=== PATIENT | male | born 1975 | race Caucasian/White ===

== ENCOUNTER 2019-04-12 19:14 | Inpatient (IN) | payer SELFPAY ==
[~2019-04-12] VITALS: Ht 182.9 cm; Wt 102.1 kg
[2019-04-12] MEDS ORDERED: LEVOFLOXACIN 500MG/D5W 100ML 100 ML IV STA (19:36)
[2019-04-12] MEDS ORDERED: VANCOMYCIN 1GM/NS 250 ML 250 ML IV STA (19:36)
[2019-04-12] MEDS ORDERED: ACETAMINOPHEN 325 MG TAB PO ONE (19:45)
[2019-04-12 19:54] LABS: BASOPHILS % 0.2 % (0.0-1.0); EOSINOPHILS % 0.1 % (0.0-6.0); HEMATOCRIT 46.8 % (38.2-49.6); LYMPHOCYTES # (AUTO) 1.4 (1.0-3.2); MEAN CORPUSCULAR HEMOGLOBIN 30.2 pg (28-32); MEAN CORPUSCULAR HGB CONC 34.2 g/dL (31-35); MEAN CORPUSCULAR VOLUME 88.3 fL (81-99); MONOCYTES # (AUTO) 1.2 (0.2-0.8); MONOCYTES % 6.8 % (4.4-11.3); NEUTROPHILS # (AUTO) 14.5 (2.1-6.9); NEUTROPHILS % 84.4 % (38.7-80.0); PLATELET COUNT 241 x10e3/uL (140-360); RED CELL DISTRIBUTION WIDTH 12.5 % (11.7-14.4)
[2019-04-12] MEDS ORDERED: TRAMADOL HCL 50 MG TAB PO NR (20:00)
[2019-04-12 20:12] LABS: ALANINE AMINOTRANSFERASE 26 IU/L (0-55); ALBUMIN 3.5 g/dL (3.5-5.0); ALBUMIN/GLOBULIN RATIO 0.8 (0.8-2.0); ALKALINE PHOSPHATASE 99 IU/L (40-150); ANION GAP 14.9 mmol/L (8-16); BLOOD UREA NITROGEN 11 mg/dL (7-26); BUN/CREATININE RATIO 12 (6-25); CALCIUM 9.7 mg/dL (8.4-10.2); CARBON DIOXIDE 25 mmol/L (22-29); CHLORIDE 97 mmol/L (98-107); CREATININE, SERUM 0.93 mg/dL (0.72-1.25); EST GLOMERULAR FILTRATION RATE > 60 ML/MIN (60-); GLUCOSE 125 mg/dL (74-118); POTASSIUM 3.9 mmol/L (3.5-5.1); SODIUM 133 mmol/L (136-145)
[2019-04-12] MEDS ORDERED: ONDANSETRON HCL INJ 2MG/ML 2ML 2 MG/ML VIAL IV PRN (20:45)
[2019-04-12] MEDS ORDERED: MORPHINE SULFATE 2 MG/ML SYR 1ML IV PRN (20:45)
[2019-04-12] MEDS: VANCOMYCIN 1GM/NS 250 ML 250 ML IV SCH (21:04)
[2019-04-12] MEDS: LEVOFLOXACIN 500MG/D5W 100ML 100 ML IV SCH (21:05)
--- NOTE | 2019-04-12 21:07 | NUR ---
received patient from er, aaox3, amb., resp even and unlabored. stable condition. c/o pain to RLE 10/10- pain medication to be administered, see emar. bed locked and in lowest position, call light within reach. no needs voiced at this time. will continue to monitor patient. patient refused bed alarm, patient refused non-slip socks.
[2019-04-12 21:26] VITALS: BP 138/92
[2019-04-12 21:38] VITALS: BP 138/92
[2019-04-12 21:44] VITALS: BP 138/92
[2019-04-12] MEDS: MORPHINE SULFATE INJ 4 MG/ML INJ 1ML IV PRN (22:16)
[2019-04-12] MEDS: SODIUM CHLORIDE 0.9% 1000ML 1,000 ML IV SCH (22:16)
[2019-04-13] VITALS (8 sets, daily range): BP systolic 134–169; BP diastolic 73–96
--- NOTE | 2019-04-13 00:49 | NUR ---
spoke with dr. rojo regarding fever, and elevated HR. orders received for PRN acetaminophen, and continue with fluids as previously ordered. orders entered and implemented.
[2019-04-13] MEDS: ACETAMINOPHEN 325 MG TAB PO PRN ×3 (01:14→15:30)
[2019-04-13] MEDS: MORPHINE SULFATE INJ 4 MG/ML INJ 1ML IV PRN ×4 (02:23→22:05)
[2019-04-13 05:58] LABS: BASOPHILS % 0.2 % (0.0-1.0); EOSINOPHILS % 0.1 % (0.0-6.0); HEMATOCRIT 44.4 % (38.2-49.6); HEMOGLOBIN 14.8 g/dL (14.0-18.0); LYMPHOCYTES # (AUTO) 1.3 (1.0-3.2); LYMPHOCYTES % 8.7 % (18.0-39.1); MEAN CORPUSCULAR HEMOGLOBIN 29.8 pg (28-32); MEAN CORPUSCULAR HGB CONC 33.3 g/dL (31-35); MEAN CORPUSCULAR VOLUME 89.3 fL (81-99); MONOCYTES # (AUTO) 1.3 (0.2-0.8); MONOCYTES % 8.7 % (4.4-11.3); NEUTROPHILS # (AUTO) 11.8 (2.1-6.9); NEUTROPHILS % 81.7 % (38.7-80.0); PLATELET COUNT 212 x10e3/uL (140-360); RED BLOOD COUNT 4.97 x10e6/uL (4.3-5.7); RED CELL DISTRIBUTION WIDTH 12.6 % (11.7-14.4)
[2019-04-13 06:35] LABS: ALANINE AMINOTRANSFERASE 32 IU/L (0-55); ALBUMIN 2.9 g/dL (3.5-5.0); ALBUMIN/GLOBULIN RATIO 0.7 (0.8-2.0); ALKALINE PHOSPHATASE 93 IU/L (40-150); ANION GAP 12.3 mmol/L (8-16); BLOOD UREA NITROGEN 9 mg/dL (7-26); BUN/CREATININE RATIO 10 (6-25); CALCIUM 9.4 mg/dL (8.4-10.2); CARBON DIOXIDE 28 mmol/L (22-29); CHLORIDE 99 mmol/L (98-107); CREATININE, SERUM 0.94 mg/dL (0.72-1.25); EST GLOMERULAR FILTRATION RATE > 60 ML/MIN (60-); GLUCOSE 98 mg/dL (74-118); POTASSIUM 4.3 mmol/L (3.5-5.1); SODIUM 135 mmol/L (136-145)
[2019-04-13] MEDS: SODIUM CHLORIDE 0.9% 1000ML 1,000 ML IV SCH ×3 (06:41→17:34)
--- NOTE | 2019-04-13 07:00 | NUR ---
RECEIVED BEDSIDE SHIFT REPORT FROM THE SHIPPING PROCESSOR RN. PT DENIES NEEDS AT THIS TIME.
--- NOTE | 2019-04-13 07:47 | NUR ---
[facility] DELIVERY CAME FOR THE PT. INFORMED PT ABOUT CARDIAC DIET AND PT VERBALIZED UNDERSTANDING. PER THE PT, FOOD IS FOR FAMILY.
[2019-04-13] MEDS: VANCOMYCIN 1GM/NS 250 ML 250 ML IV SCH ×2 (10:00→22:05)
[2019-04-13] MEDS ORDERED: HYDROCODONE/APAP 10MG-325MG TAB PO PRN (11:00)
[2019-04-13] MEDS ORDERED: ZOLPIDEM TARTRATE 5 MG TAB PO PRN (11:00)
[2019-04-13] MEDS ORDERED: IBUPROFEN 600 MG TAB PO PRN (11:00)
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
--- NOTE | 2019-04-13 15:30 | NUR ---
PT COMPLAINING OF FEVER 102.0. TYLENOL ADMINISTERED.
--- NOTE | 2019-04-13 15:32 | NUR ---
PT COMPLAINT OF SEVERE PAIN. INFORMED OCALA IS NOT WORKING FOR HIM. CALLED DR CASPER AND REPORTED THE SAME. NEW ORDER RECEIVED.
--- NOTE | 2019-04-13 15:57 | NUR ---
TEMPERATURE RECHECKED. 101.3 NOTED.
--- NOTE | 2019-04-13 16:45 | NUR ---
TEMPERATURE RECHECKED. 99.2 NOTED
--- NOTE | 2019-04-13 19:00 | NUR ---
BEDSIDE SHIFT REPORT GIVEN TO THE DAM TENDER RN. PT DENIED FURTHER NEEDS.
[2019-04-13] MEDS: LEVOFLOXACIN 500MG/D5W 100ML 100 ML IV SCH (20:56)
[2019-04-14] VITALS (7 sets, daily range): BP systolic 131–191; BP diastolic 81–105
[2019-04-14] MEDS: MORPHINE SULFATE INJ 4 MG/ML INJ 1ML IV PRN ×5 (02:11→21:21)
[2019-04-14] MEDS: ACETAMINOPHEN 325 MG TAB PO PRN ×2 (04:05→18:10)
[2019-04-14] MEDS: SODIUM CHLORIDE 0.9% 1000ML 1,000 ML IV SCH ×3 (04:09→20:43)
[2019-04-14 05:41] LABS: BASOPHILS % 0.2 % (0.0-1.0); EOSINOPHILS # (AUTO) 0.1 (0.0-0.4); EOSINOPHILS % 0.4 % (0.0-6.0); HEMATOCRIT 42.1 % (38.2-49.6); HEMOGLOBIN 14.7 g/dL (14.0-18.0); LYMPHOCYTES # (AUTO) 1.3 (1.0-3.2); LYMPHOCYTES % 10.2 % (18.0-39.1); MEAN CORPUSCULAR HEMOGLOBIN 30.3 pg (28-32); MEAN CORPUSCULAR HGB CONC 34.9 g/dL (31-35); MEAN CORPUSCULAR VOLUME 86.8 fL (81-99); MONOCYTES # (AUTO) 1.7 (0.2-0.8); NEUTROPHILS # (AUTO) 9.9 (2.1-6.9); NEUTROPHILS % 75.4 % (38.7-80.0); PLATELET COUNT 221 x10e3/uL (140-360); RED BLOOD COUNT 4.85 x10e6/uL (4.3-5.7); RED CELL DISTRIBUTION WIDTH 12.5 % (11.7-14.4)
[2019-04-14 05:43] LABS: ALANINE AMINOTRANSFERASE 35 IU/L (0-55); ALBUMIN 2.5 g/dL (3.5-5.0); ALKALINE PHOSPHATASE 92 IU/L (40-150); ANION GAP 13.3 mmol/L (8-16); BLOOD UREA NITROGEN 7 mg/dL (7-26); BUN/CREATININE RATIO 9 (6-25); CALCIUM 8.8 mg/dL (8.4-10.2); CARBON DIOXIDE 23 mmol/L (22-29); CHLORIDE 101 mmol/L (98-107); EST GLOMERULAR FILTRATION RATE > 60 ML/MIN (60-); GLUCOSE 155 mg/dL (74-118); POTASSIUM 3.3 mmol/L (3.5-5.1); SODIUM 134 mmol/L (136-145)
[2019-04-14 06:49] LABS: ALBUMIN/GLOBULIN RATIO 0.6 (0.8-2.0)
--- NOTE | 2019-04-14 07:30 | NUR ---
Pt received in bed with eyes closed. Easily arouses with verbal stimuli. Denies any pain at this time. Continues on IVF and well tolerated at this time.
[2019-04-14] MEDS: VANCOMYCIN 1GM/NS 250 ML 250 ML IV SCH ×2 (07:55→22:15)
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
--- NOTE | 2019-04-14 15:53 | NUR ---
Nutrition Screen Note RD Recommendation for Physician: -Continue cardiac diet as ordered Plan of Care: RD following, monitoring for tolerance and adequacy Nutrition reason for involvement: Nutrition Risk Trigger MST Primary Diagnose(s): 1. Sepsis from right leg cellulitis, present on admission. 2. Lymphadenitis from cellulitis, present on admission. 3. Varicose veins. PMH: Crohn disease (the patient has not been on medication) and questionable encephalitis from prior left lower extremity cellulitis. Ht: 72in Wt: 225lb BMI: 30.5kg/m2 IBW: 178lb RD Assessment: (04/14) Chart reviewed. Labs and meds reviewed. 43yo M, who was admitted for RLE cellulitis. Visited pt in the room. Pt was sleeping. Per daughter, pt has been eating like usual. PCT recorded 75 100% meal intake since admission. Daughter didnt notice any recent weight loss on pt. No complains of nausea or vomiting noted. Current diet is appropriate and adequate. Will continue to monitor and follow. Current Diet: cardiac diet Malnutrition Evaluation (04/14) The patient does not meet criteria for a specified degree of malnutrition at this time. Will re-evaluate at follow-up as appropriate. Diet Education Needs Assessment: Diet education not indicated. Nutrition Care Level: low Signed: Tabitha Dunn, MS, RD, LD
[2019-04-14] MEDS ORDERED: POTASSIUM CHLORIDE 20 MEQ TAB CR PO ONE (16:27)
--- NOTE | 2019-04-14 18:45 | NUR ---
Pt in bed. Pt has right lower extremity elevated on pilllows at this time. Warm compress applied throughout the shift pt continues on IV fluids and IV and IV antibiotics and well tolerated. Pt has been afebrile today.
--- NOTE | 2019-04-14 19:20 | NUR ---
Patient received sitting in W/C. Family at bedside. AAO x 4. Patient had no complaints of pain. Respirations even and unlabored. Fall precautions implemented. Patient instructed to call for assistance when needed. Call light within reach.
[2019-04-14] MEDS: LEVOFLOXACIN 500MG/D5W 100ML 100 ML IV SCH (20:45)
[2019-04-15] VITALS (8 sets, daily range): BP systolic 140–159; BP diastolic 83–95
[2019-04-15] MEDS: ACETAMINOPHEN 325 MG TAB PO PRN ×2 (00:41→14:55)
[2019-04-15] MEDS: MORPHINE SULFATE INJ 4 MG/ML INJ 1ML IV PRN ×4 (04:39→20:57)
[2019-04-15] MEDS: SODIUM CHLORIDE 0.9% 1000ML 1,000 ML IV SCH ×2 (04:43→14:55)
--- NOTE | 2019-04-15 07:00 | NUR ---
Patient resting comfortably. Shift report given to oncoming nurse for continuity of care.
--- NOTE | 2019-04-15 07:30 | NUR ---
Pt in bed with eyes closed. Easily arouses with verbal stimuli. Continues on IVF at this time and well tolerated. Breaths are even and unlabored.
[2019-04-15] MEDS: VANCOMYCIN 1GM/NS 250 ML 250 ML IV SCH (09:01)
--- NOTE | 2019-04-15 13:10 | Progress Note ---
DATE: SUBJECTIVE: The patient notes some worsening erythema in his leg. He still has pain. He had some fevers at night. PHYSICAL EXAMINATION: VITAL SIGNS: The patient is afebrile. The T-max is 99.5 last night. The blood pressure was 150/87, saturation is 96%. HEENT: Shows no facial swelling or erythema. CARDIAC: Reveals regular rate and rhythm with normal S1 and S2. There are no murmurs or rubs heard. LUNGS: Auscultation of lungs shows clear breath sounds bilaterally. There is no wheezing. ABDOMEN: Soft, nontender. There is no rebound or guarding. EXTREMITIES: Examination of the extremities shows erythema and tenderness over the pretibial surface of the right lower extremity. IMPRESSION: 1. Cellulitis with sepsis, present on admission. 2. Hyponatremia. PLAN: 1. Continue IV antibiotics. 2. CT scan of the lower extremity to rule out abscess. 3. Await final culture results. 4. Infectious Disease following patient. Curt Llamas MD [facility] /[id number]
[2019-04-15] MEDS ORDERED: ONDANSETRON HCL 4 MG ORAL DISINTEGRATING TAB PO PRN (14:45)
--- NOTE | 2019-04-15 14:53 | Diagnostic Imaging Report ---
Examination: CT of the right lower extremity without contrast. Technique: Helical axial CT images of the right leg were acquired from the distal femur through the talar dome without intravenous contrast. Coronal and sagittal reformatted images were available for review. Clinical indication: Cellulitis. Comparison examination: None available. Discussion: Absence of intravenous contrast limits evaluation of vascular pathology and soft tissue lesions. Bones: Posttraumatic changes of the proximal tibia and fibula with partial fusion of the fibular head the adjacent lateral tibial metaphysis. Surgical screw traverses the proximal fibular shaft with heterotopic ossification along the anterior margin of the proximal fibular diaphysis. No osseous destructive lesions. No cortical erosive or destructive change. Joints: There is mild narrowing of the medial and lateral compartments of the knee joint space with calcifications of the partially extruded medial and lateral menisci. Ankle joint is maintained. No definite knee joint effusion. Soft tissues: Skin thickening with subcutaneous edema and fat stranding concentrically involving the lower leg extending from the proximal calf to the inferior margin of the scan field at the hindfoot. No subcutaneous or interstitial gas. No discrete fluid collection. Impression: Findings compatible with the provided clinical history of lower extremity cellulitis involving the distal two thirds of the right calf and extending to the hindfoot. No subcutaneous gas or discrete fluid collection. Posttraumatic and postsurgical changes of the proximal tibia and fibula as above. 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 Signed by: Dr. Dipesh Austin M.D. on 04/15/2019 2:50 PM
--- NOTE | 2019-04-15 17:00 | NUR ---
Pt in bed. AOX4 and able to verbalize needs. Denies any pain at this time. IVF decreased to NS 50ml/hr and well tolerated. Vancomycin dose increased to 1.5g q12hr. Pt is afebrile. Right lower ext elevated on pillows.
--- NOTE | 2019-04-15 19:25 | NUR ---
Patient received lying in bed. No acute distress noted. IVF infusing at 50 cc /hr. Patient instructed to call for assistance when needed. Call light within reach.
[2019-04-15] MEDS: LEVOFLOXACIN 500MG/D5W 100ML 100 ML IV SCH (20:48)
[2019-04-15] MEDS: VANCOMYCIN HCL 1.5 GM in SODIUM CHLORIDE 0.9% 250ML 300 ML IV SCH (22:00)
[2019-04-16] VITALS (7 sets, daily range): BP systolic 141–161; BP diastolic 74–99
[2019-04-16] MEDS: MORPHINE SULFATE INJ 4 MG/ML INJ 1ML IV PRN (04:14)
[2019-04-16 05:42] LABS: BASOPHILS # (AUTO) 0.1 (0.0-0.1); BASOPHILS % 0.9 % (0.0-1.0); EOSINOPHILS # (AUTO) 0.4 (0.0-0.4); EOSINOPHILS % 3.5 % (0.0-6.0); HEMOGLOBIN 13.8 g/dL (14.0-18.0); LYMPHOCYTES # (AUTO) 2.2 (1.0-3.2); LYMPHOCYTES % 18.9 % (18.0-39.1); MEAN CORPUSCULAR HEMOGLOBIN 29.6 pg (28-32); MEAN CORPUSCULAR HGB CONC 33.7 g/dL (31-35); MEAN CORPUSCULAR VOLUME 87.8 fL (81-99); MONOCYTES # (AUTO) 1.5 (0.2-0.8); MONOCYTES % 12.8 % (4.4-11.3); NEUTROPHILS % 61.2 % (38.7-80.0); PLATELET COUNT 282 x10e3/uL (140-360); RED BLOOD COUNT 4.67 x10e6/uL (4.3-5.7); RED CELL DISTRIBUTION WIDTH 12.4 % (11.7-14.4)
--- NOTE | 2019-04-16 06:58 | NUR ---
Patient resting comfortably. Walking rounds done. Shift report given to oncoming nurse for continuity of care.
[2019-04-16] MEDS: SODIUM CHLORIDE 0.9% 1000ML 1,000 ML IV SCH (08:32)
[2019-04-16 09:06] LABS: EOSINOPHILS % (MANUAL) 4 % (0-7); LYMPHOCYTES % (MANUAL) 19 % (19-48); MONOCYTES % (MANUAL) 14 % (3.4-9.0); MYELOCYTES % (MANUAL) 2 % (0-0); NEUTROPHILS % (MANUAL) 61 % (40-74); PLATELET ESTIMATE ADEQUATE; RBC MORPHOLOGY COMMENT NORMAL
[2019-04-16 09:07] LABS: PLATELET MORPHOLOGY COMMENT NORMAL
[2019-04-16] MEDS: VANCOMYCIN HCL 1.5 GM in SODIUM CHLORIDE 0.9% 250ML 300 ML IV SCH (09:28)
[2019-04-16] MEDS ORDERED: HYDROCODONE/APAP 7.5MG-325MG 1 EA TAB PO PRN (14:30)
[2019-04-16] MEDS ORDERED: MORPHINE SULFATE INJ 4 MG/ML INJ 1ML IV PRN (14:30)
[2019-04-16] MEDS ORDERED: POTASSIUM CHLORIDE 20 MEQ TAB CR PO ONE (14:45)
--- NOTE | 2019-04-16 14:57 | Progress Note ---
DATE: SUBJECTIVE: CT scan of the leg showed no abscess of air. The patient still complains of erythema and intermittent pain. PHYSICAL EXAMINATION: VITAL SIGNS: Stable. HEENT: Shows no facial swelling or erythema. CARDIAC: Reveals regular rate and rhythm with normal S1 and S2. LUNGS: Auscultation of lungs reveals clear breath sounds bilaterally. There is no wheezing. ABDOMEN: Soft, nontender. There is no rebound or guarding. EXTREMITIES: Examination of the extremities shows cellulitis and erythema of the right leg, mostly in the pretibial area. IMPRESSION: 1. Cellulitis with sepsis present on admission. 2. Hypokalemia. PLAN: 1. Continue IV antibiotics. 2. Decrease pain medication. 3. Continue to monitor blood counts. 4. Replete potassium. 5. Repeat electrolytes and CBC in a.m. Curt Llamas MD [facility]/[place] /[id number]
--- NOTE | 2019-04-16 16:00 | NUR ---
LAC 20 G IV REMOVED. TIP INTACT. NO BLEEDING NOTED. DRESSING APPLIED. PT DENIED FURTHER NEEDS.
--- NOTE | 2019-04-16 19:00 | NUR ---
BEDSIDE SHIFT REPORT GIVEN TO THE ASSISTANT INVENTORY MANAGER RN. PT DENIED FURTHER NEEDS.
--- NOTE | 2019-04-16 21:09 | NUR ---
patient leaving [facility] states the doctors are not communicating to him on treatment. states his right leg cellulitis has gotten worse since being in hospital. had charge nurse in room. patient removed iv and took patients belongings. ama paper signed.
--- NOTE | 2019-04-16 21:23 | NUR ---
dr rojo called and aware of ama
== END 2019-04-16 21:21 | disposition left against medical advice (07) | DRG 872 ==
LOC: ER 19:14 → ERHOLD 20:55 → MED/SURG2 21:07
PROVIDERS: ADMIT Internal Medicine Critical Care Medicine; ATTEND Internal Medicine Critical Care Medicine
DX: A41.9 Sepsis, unspecified organism (principal); L03.90 Cellulitis, unspecified; E87.1 Hypo-osmolality and hyponatremia; K50.90 Crohn's disease, unspecified, without complications; I88.9 Nonspecific lymphadenitis, unspecified; I83.90 Asymptomatic varicose veins of unspecified lower extremity; E87.6 Hypokalemia
CPT/HCPCS: 36415; 80053; 80202; 83605; 85025; 87040; 93970; 99284; J1956; J2270; J3370; J7030; J7050